=== PATIENT | female | born 1995 | race Caucasian/White ===

== ENCOUNTER 2024-08-20 16:28 | Outpatient (CLI) | payer OTHER, SELFPAY | END 2024-08-20 23:59 | disposition home or self-care (01) | LOC: RT 16:30 | PROVIDERS: Visit Provider Physician Assistant | DX: R00.2 Palpitations (principal); R00.0 Tachycardia, unspecified; R42 Dizziness and giddiness; R06.00 Dyspnea, unspecified | CPT/HCPCS: 93270 ==

== ENCOUNTER 2024-10-22 16:20 | Outpatient (CLI) | payer OTHER, SELFPAY ==
[2024-10-22 16:46] LABS: Basophils % 0.6 % (0.1-2.0); Eosinophils # 0.1 K/mm3 (0.0-0.4); Eosinophils % 1.5 % (0.1-12.0); Hematocrit 39.5 % (37.0-47.0); Hemoglobin 13.4 g/dL (12.2-16.2); Lymphocytes # 1.8 K/mm3 (0.7-4.5); Lymphocytes % 28.2 % (10-50); Mean Corpuscular HGB Conc 33.9 g/dL (31.8-35.4); Mean Corpuscular Volume 85.6 fl (81-99); Mean Platelet Volume 7.4 fl (7.4-10.4); Monocytes # 0.5 K/mm3 (0.1-1.0); Monocytes % 7.8 % (1.7-9.3); Neutrophils # 3.9 K/mm3 (1.8-7.8); Platelet Count 281 K/mm3 (142-424); Red Blood Count 4.62 M/mm3 (4.20-5.40); Red Cell Distribution Width 13.5 % (11.5-17.5); White Blood Count 6.2 K/mm3 (4.8-10.8)
[2024-10-22 17:29] LABS: Alanine Aminotransferase 18 U/L (12-78); Albumin Level 4.5 g/dl (3.5-5.0); Alkaline Phosphatase 72 U/L (38-126); Anion Gap 12.2 mEq/L (5-15); Aspartate Amino Transferase 32 U/L (14-36); Bilirubin,Direct 0.3 mg/dl (0.0-0.4); Bilirubin,Total 0.3 mg/dl (0.2-1.3); Blood Urea Nitrogen 13 mg/dl (7-17); Calcium 9.2 mg/dl (8.4-10.2); Carbon Dioxide 26 mmol/L (22.0-30.0); Chloride 105 mmol/L (98-107); Chol/HDL Ratio 2.4 (1-3.5); Cholesterol 157 mg/dl (140-200); Estimated Glomerular Filt Rate 101 ml/min (>60); GFR (African American) 122 ML/MIN (>60); Glucose 88 mg/dl (74-100); HDL Cholesterol 66 mg/dl (40-60); Magnesium 1.9 mg/dl (1.6-2.3); Potassium 4.2 mmoL/L (3.5-5.1); Sodium 139 mmol/L (136-145); Total Protein,Serum 7.5 g/dl (6.3-8.2); Triglycerides 68 mg/dl (30-150); VLDL Cholesterol 14 mg/dL (0-40)
[2024-10-22 17:40] LABS: Direct LDL Cholesterol 78.68 mg/dL (100-129)
[2024-10-22 17:46] LABS: Free T4 (Free Thyroxine) 1.02 ng/dl (0.78-2.19)
[2024-10-22 18:00] LABS: Thyroid Stimulating Hormone 0.95 uIU/mL (0.465-4.68)
== END 2024-10-22 23:59 | disposition home or self-care (01) ==
LOC: LAB 16:22
PROVIDERS: Visit Provider Physician Assistant
DX: I47.11 Inappropriate sinus tachycardia, so stated (principal); R00.2 Palpitations
CPT/HCPCS: 36415; 80048; 80061; 80076; 83735; 84439; 84443; 85025

== ENCOUNTER 2024-12-06 17:24 | Outpatient (CLI) | payer OTHER, SELFPAY ==
[2024-12-06 20:05] LABS: HCG,Quantitative 17731 mIU/ml (0-5.42)
[2024-12-08 08:14] LABS: Progesterone 17.8 ng/mL (.)
== END 2024-12-06 23:59 | disposition home or self-care (01) ==
LOC: LAB 17:27
PROVIDERS: Visit Provider Nurse Practitioner Obstetrics & Gynecology
DX: Z32.01 Encounter for pregnancy test, result positive (principal)
CPT/HCPCS: 84144; 84702

== ENCOUNTER 2024-12-10 16:44 | Outpatient (CLI) | payer OTHER, SELFPAY ==
[2024-12-10 17:24] LABS: Basophils % 0.5 % (0.1-2.0); Eosinophils # 0.1 K/mm3 (0.0-0.4); Hematocrit 36.4 % (37.0-47.0); Hemoglobin 12.1 g/dL (12.2-16.2); Lymphocytes # 1.4 K/mm3 (0.7-4.5); Lymphocytes % 23.8 % (10-50); Mean Corpuscular HGB Conc 33.2 g/dL (31.8-35.4); Mean Corpuscular Hemoglobin 28.1 pg (27.0-31.2); Mean Corpuscular Volume 84.7 fl (81-99); Mean Platelet Volume 9.5 fl (7.4-10.4); Monocytes # 0.5 K/mm3 (0.1-1.0); Monocytes % 8.4 % (1.7-9.3); Neutrophils # 3.9 K/mm3 (1.8-7.8); Neutrophils % 66.1 % (37.0-80.0); Platelet Count 269 K/mm3 (142-424); Red Cell Distribution Width 12.7 % (11.5-17.5); White Blood Count 5.9 K/mm3 (4.8-10.8)
[2024-12-10 18:49] LABS: HIV Combo NEGATIVE (Negative)
[2024-12-10 18:59] LABS: Hepatitis C Ab Qual. W/ RFX NEGATIVE (Negative)
[2024-12-11 14:59] LABS: RPR W/RFX Titers Nonreactive (Nonreactive)
[2024-12-12 05:08] LABS: Hepatitis B Surface Antigen Negative (Negative)
[2024-12-12 06:39] LABS: Rubella Antibodies, IgG 1.12 index (Immune >0.99)
== END 2024-12-10 23:59 | disposition home or self-care (01) ==
PROVIDERS: PCP Nurse Practitioner Obstetrics & Gynecology; Visit Provider Nurse Practitioner Obstetrics & Gynecology
DX: Z34.01 Encounter for supervision of normal first pregnancy, first trimester (principal)
CPT/HCPCS: 36415; 85025; 86592; 86762; 86803; 86850; 87086; 87340; 87389

== ENCOUNTER 2025-01-08 13:57 | Outpatient (CLI) | payer OTHER, SELFPAY ==
--- NOTE | 2025-01-08 13:57 | US_ITS ---
PROCEDURE: US OB <= 14 WEEKS FETUS CLINICAL INDICATION: Dates and Confirmation of COMPARISON: No exams were available for comparison FINDINGS: Transvaginal sonographic images of the pelvis were obtained. From her last menstrual period she is 9weeks 6days. An intrauterine gestational sac is present with a pole with a crown-rump length of 2.97cm In the posterior aspect of the skull there appears to be a small amount of excess fluid. This could represent an enlarged rhombencephalon. Would suggest repeat ultrasound again in 4 weeks. This correlates to a gestational age of 9weeks 6days. ALDEN 08/07/2025 heart tones are present with an FHR of 156bpm. Yolk sac is noted. The yolk sac measures 6.4mm. The right ovary is seen and appears normal. The left ovary is seen and appears normal. There appears to be a 2.0 cm corpus luteum within the left ovary. There is no fluid in the cul-de-sac. IMPRESSION: 1. Viable embryo within the uterine cavity. heart rate activity is present. 2. Fetus measures 9 weeks 6 days and the ALDEN based on this ultrasound and LMP will be 08/07/2025. 3. On examination of the posterior embryo head, there appears to be a small amount of excess fluid. This could represent dilation of the rhombencephalon. Would suggest repeat ultrasound again in 4 weeks. Dictated by: Pravin Rivera MD 01/08/2025 15:41 Pravin Rivera MD in [facility] 01/08/2025 15:41
== END 2025-01-08 23:59 | disposition home or self-care (01) ==
LOC: RAD 13:57
PROVIDERS: PCP Nurse Practitioner Obstetrics & Gynecology; Visit Provider Nurse Practitioner Obstetrics & Gynecology
DX: O26.841 Uterine size-date discrepancy, first trimester (principal); Z3A.09 9 weeks gestation of pregnancy
CPT/HCPCS: 76801

== ENCOUNTER 2025-02-06 14:29 | Outpatient (CLI) | payer OTHER, SELFPAY ==
--- NOTE | 2025-02-06 14:32 | US_ITS ---
PROCEDURE: US OB FOLLOW UP CLINICAL INDICATION: Follow up -rescan of Head COMPARISON: US US OB <= 14 WEEKS FETUS from 01/08/2025 FINDINGS: Transabdominal sonographic images of the pelvis were obtained. The following parameters are obtained: From her established due date she is 14weeks 0 days Viable fetus in the breech presentation with an anterior placenta grade 1. Placental lakes are seen. Retroplacental the uterine wall appears thickened. Possible contraction during the examination. The cervix measures 3.4 cm heart rate: 149bpm bpm. BPD: 14weeks 4days HC: 14weeks 4days AC: 14weeks 3days FL: 14weeks 1day HC/AC: 1.25 FL/BPD: 0.53 FL/AC: 0.17 Growth percentile: Amniotic fluid index: 47 No obvious anomalies evident. profile seen. The posterior fossa, thalamus, choroid plexus appears normal. IMPRESSION: 1. Viable fetus in the breech presentation with an anterior placenta grade 1. There are several placental lakes. There appears to be a thickened retroplacental area. Possible contraction. 2. The fluid appears adequate for this gestational age. 3. head is seen and the anatomy appears normal. 4. biometry is consistent with the dates. 5. Repeat scan at 20 weeks for complete anatomy. Dictated by: Pravin Rivera MD 02/06/2025 18:24 Pravin Rivera MD in [facility] 02/06/2025 18:24
== END 2025-02-06 23:59 | disposition home or self-care (01) ==
LOC: RAD 14:29
PROVIDERS: Visit Provider Nurse Practitioner Obstetrics & Gynecology
DX: Z36.2 Encounter for other antenatal screening follow-up (principal); Z3A.14 14 weeks gestation of pregnancy
CPT/HCPCS: 76816

== ENCOUNTER 2025-03-11 14:18 | Emergency (ER) | payer OTHER, SELFPAY ==
--- NOTE | 2025-03-11 14:16 | ECG_ITS ---
APPROVED REPORT Exam: Resting ECG HR:70 bpm ECG Measurements Heart Rate 70 AXES MN 108 P 144 QRSd 90 QRS 143 QT 372 T 178 QTc 393 Conclusion ECTOPIC ATRIAL RHYTHM WITH SHORT MN INTERVAL RIGHT AXIS DEVIATION [QRS AXIS > 100] ABNORMAL ECG UNCONFIRMED REPORT Electronically signed by : ALONZO ROSALES, 03/14/2025 00:25:21
[2025-03-11 14:18] VITALS: BP 138/78; PULSE 80; RESP 17; TEMP 36.6; O2SAT 100; BMI 25.0
[2025-03-11 14:30] LABS: Microscopic, Urine URINE MICROSCOPIC (MICROSCOPIC)
[2025-03-11 14:36] LABS: Appearance,Urine CLEAR (Clear); Bilirubin,Urine Negative (Negative); Blood, Urine Negative (Negative); Color,Urine YELLOW (Yellow); Glucose,Urine (UA) Negative (Negative); Ketones,Urine Negative (Negative); Leukocyte Esterase,Urine TRACE (Negative); Nitrate,Urine Negative (Negative); Protein,Urine Negative (Negative); Specific Gravity, Urine <= 1.005 (1.005-1.030); Urobilinogen,Urine 0.2 EU/dl (0.2)
[2025-03-11 15:00] VITALS: BP 122/67; PULSE 70; O2SAT 100
[2025-03-11 15:03] LABS: Basophils % 0.4 % (0.1-2.0); Eosinophils # 0.1 Kmm3 (0.0-0.4); Eosinophils % 1.3 % (0.1-12.0); Hematocrit 33.1 % (37.0-47.0); Hemoglobin 11.4 g/dL (12.2-16.2); Lymphocytes # 1.3 K/mm3 (0.7-4.5); Lymphocytes % 15.1 % (10-50); Mean Corpuscular HGB Conc 34.4 g/dL (31.8-35.4); Mean Corpuscular Hemoglobin 29.7 pg (27.0-31.2); Mean Corpuscular Volume 86.2 fl (81-99); Mean Platelet Volume 9.7 fl (7.4-10.4); Monocytes # 0.5 K/mm3 (0.1-1.0); Monocytes % 6.3 % (1.7-9.3); Neutrophils # 6.5 K/mm3 (1.8-7.8); Neutrophils % 76.5 % (37.0-80.0); Nucleated Red Blood Cells # 0 10^3/uL; Nucleated Red Blood Cells % 0 %; Platelet Count 271 K/mm3 (142-424); Red Blood Count 3.84 M/mm3 (4.20-5.40); Red Cell Distribution Width 12.9 % (11.5-17.5); Red Cell Distribution Width-SD 40.1 fL; White Blood Count 8.5 K/mm3 (4.8-10.8)
--- NOTE | 2025-03-11 15:03 | [facility].EDCP ---
Discharge Plan Disposition Patient Disposition: Home, Self-Care Prescriptions Prescriptions: No Action omeprazole 20 mg capsule,delayed release(DR/EC) 20 mg PO DAILY metoprolol tartrate 25 mg tablet 25 mg PO BID Qty: 60 3RF Referrals Follow up/Referrals: Provider,Referral, MD [Primary Care Provider] - See instructions Activity Restrictions/Add. Instructions Additional Instructions/Restrictions: Today you were evaluated in the emergency department, your lab workup is overall unremarkable. Please follow-up tomorrow. Please return to the ED for any worsening of condition. Clinical Impressions Clinical Impression: Palpitations Instructions Patient Instructions: DI for Palpitations Print Language Print Language: Malian Discharge ED Provider: Chauncey Carcamo HPI <Moni Akhtar APRN - Last Filed: 03/11/25 17:08> General Chief Complaint: Chest Pain Stated Complaint: heart palpitations Time Seen by Provider: 03/11/25 14:38 History of Present Illness HPI narrative: patient is a 29-year-old female PMHx palpitations, tachycardia, abnormal EKG who presents to the ED with complaints of chest pain and palpitations. Patient is currently [address] Yusuf. She states she has never been diagnosed with any specific cardiac diagnoses however has followed with cardiology. Related Data Home Medications ?Medication ?Instructions ?Recorded ?Confirmed omeprazole 20 mg capsule,delayed 20 mg PO DAILY 08/20/24 02/06/25 release Previous Rx's ?Medication ?Instructions ?Recorded metoprolol tartrate 25 mg tablet 25 mg PO BID #60 tabs 02/06/25 Allergies Allergy/AdvReac Type Severity Reaction Status Date / Time amoxicillin Allergy Verified 02/06/25 15:24 indomethacin AdvReac Verified 02/06/25 15:24 clindamycin AdvReac Uncoded 02/06/25 15:24 PFSH <Moni Akhtar APRN - Last Filed: 03/11/25 17:08> PFS Disclaimer: The information contained in this section may have been updated after the patient was seen, as this information can be updated by other users. Medical History 14 weeks gestation of Tachycardia Pyloric stenosis Surgical History History of kidney surgery pyloric stenosis History of cholecystectomy History of arthroplasty of left shoulder Family History Grandmother Cancer Heart attack Family/Other Cancer Grandfather Diabetes Heart attack Stroke Mother Hypertension Social History Smoking Status: Unknown if ever smoked alcohol intake: current alcohol intake frequency: a few times a month substance use type: denies use current occupational status: employed Travel in the last 8 weeks?: Inside the [place] Have you lived/traveled outside US in past 30 days?: No Contact w/someone who lives/traveled outside US past 30 days?: No Exposure to someone with infectious disease in past 14 days?: No Do you have a fever (greater than 100.4 F or 38 C)?: No Have you tested positive for COVID-19?: No Exposed to someone with COVID-19 in past 14 days?: No Do you have a sore throat?: No Do you have a cough?: No Do you have any weakness?: No Do you have any diarrhea?: No Are you experiencing any unusual bleeding?: No Do you have any muscle aches/pain?: No Do you have any abdominal pain?: No Are you experiencing loss of taste or smell?: No <Moni Akhtar APRN - Last Filed: 03/11/25 17:08> ROS Obtained: Yes Systems reviewed as appropriate & no additional complaints except as documented Physical Exam <Moni Akhtar APRN - Last Filed: 03/11/25 17:08> General General appearance: alert and in no apparent distress Head Head exam: atraumatic and normocephalic Eye Eye exam: Present normal appearance and PERRL ENT ENT exam: Present normal exam Neck Neck exam: Present normal inspection Chest Chest inspection: Present normal inspection and symmetric chest wall rise; Absent tenderness Respiratory Respiratory exam: Present normal lung sounds bilaterally Cardiovascular Cardiovascular exam: Present regular rate Abdominal Exam Abdominal exam: Present soft and normal bowel sounds; Absent tenderness Extremities Exam Extremities exam: Present normal inspection and full ROM Back Exam Back exam: Present normal inspection and full ROM Neurological Exam Neurological exam: Present alert and oriented X3 Psychiatric Psychiatric exam: Present normal affect and normal mood Skin Skin exam: Present warm and dry HEART Score <JAYDEN Conde Last Filed: 03/11/25 17:08> HEART Score HEART Score assessment performed?: Yes History (anamnesis): Slightly suspicious ECG: Normal Age: <45 years Risk factors: No known risk factors Troponin: </= normal limit HEART Score: 0 <Chauncey Carcamo MD - Last Filed: 03/11/25 18:06> HEART Score HEART Score: 0 Procedures <Chauncey Carcamo MD - Last Filed: 03/11/25 18:06> Limited Ultrasound Indication:: Limited cardiac ultrasound Indication: Chest pain radiating to left shoulder Identified cardiac views: -Cardiac parasternal long axis -Cardiac parasternal short axis Findings: -Cardiac activity present -Gross wall motion normal -Pericardial effusion absent -Right heart strain absent Impression: - Normal cardiac ultrasound Images were saved to permanent archive The study was technically adequate CPT: 85218 This study was performed by il, and I personally interpreted all images/videos. Based on my clinical judgement, these images were adequate and did not necessitate further imaging Views:: Limited OB ultrasound Indication: Positive , 19 weeks palpitations Identified structures: -Uterus -Left adnexa -Right adnexa -Pouch of Jeff Findings: Uterus: Definitive IUP with FHR in the 140s Right adnexa: -Normal Left adnexa: -Normal Cul de sac: -free fluid absent Impression: -IUP: Present with fhr in the 140s -Ectopic : Absent -Free fluid: Absent Images were saved to permanent archive The study was technically adequate CPT Transabdominal: 90498-00 This study was performed by il, and I personally interpreted all images/videos. Based on my clinical judgement, these images were adequate and did not necessitate further imaging Critical Care <Moni Akhtar APRN - Last Filed: 03/11/25 17:08> Critical Care Time Critical Care Time: No Medical Decision Making <Moni Akhtar APRN - Last Filed: 03/11/25 17:08> Jose Inquiry Pt receiving controlled substance: No Vital Signs Vital Signs: 03/11/25 14:18 03/11/25 15:00 03/11/25 16:16 Temperature 97.9 F 98.0 F Temperature Source Oral Oral Pulse Rate 70 68 Pulse Rate [Left Radial] 80 Respiratory Rate 17 18 Blood Pressure 122/67 108/61 L Blood Pressure [Right Arm] 138/78 Blood Pressure Mean [Right Arm] 98 Blood Pressure Source Automatic Cuff Blood Pressure Source [Right Arm] Automatic Cuff Blood Pressure Position Sitting Blood Pressure Position [Right Arm] Sitting 02 Sat by Pulse Oximetry 100 100 Oxygen Delivery Method Room Air Room Air Lab Data Labs: Lab Results 03/11/25 14:24: Urine Color Yellow, Urine Appearance Clear, Urine pH 7.0, Ur Specific [place] <= 1.005, Urine Protein Negative, Urine Glucose (UA) Negative, Urine Ketones Negative, Urine Blood Negative, Urine Nitrate Negative, Urine Bilirubin Negative, Urine Urobilinogen 0.2, Ur Leukocyte Esterase Trace, Urine RBC None, Urine WBC Occasional, Ur Squamous Epith Cells Occasional, Urine Bacteria Trace 03/11/25 14:53: WBC 8.5, RBC 3.84 L, Hgb 11.4 L, Hct 33.1 L, MCV 86.2, MCH 29.7, MCHC 34.4, RDW 12.9, Plt Count 271, MPV 9.7, Neut % (Auto) 76.5, Lymph % (Auto) 15.1, [place] % (Auto) 6.3, Eos % (Auto) 1.3, Baso % (Auto) 0.4, Neut # (Auto) 6.5, Lymph # (Auto) 1.3, [place] # (Auto) 0.5, Eos # (Auto) 0.1, Baso # (Auto) 0.0, Sodium 134 L, Potassium 3.8, Chloride 107, Carbon Dioxide 24, Anion Gap 6.8, BUN 6 L, Creatinine 0.60, Estimated GFR 120, Est GFR ( Amer) 145, Glucose 86, Calcium 8.9, Magnesium 1.6, Total Bilirubin 0.2, AST 34, ALT 31, Alkaline Phosphatase 83, Troponin I < 0.01, Total Protein 7.1, Albumin 3.8, Globulin 3.3 H, Albumin/Globulin Ratio 1.2 03/11/25 14:53 03/11/25 14:53 Response Orders (Tests/Meds): ORDERS Category Date Time Status POCUS Point of Care (ER Only) Stat Exams 03/11/25 14:52 Taken CBC w/Auto Diff [Complete Blood Count Auto Diff] Stat Lab 03/11/25 14:53 Completed CMP [Comprehensive Metabolic Panel] Stat Lab 03/11/25 14:53 Completed Magnesium Stat Lab 03/11/25 14:53 Completed Trop I [Troponin I] Stat Lab 03/11/25 14:53 Completed Troponin I Q3H Lab 03/11/25 21:00 Ordered UA [Urinalysis and Microscopic] Stat Lab 03/11/25 14:24 Completed MDM Narrative Medical Decision Narrative: In summary, patient is a 29-year-old female PMHx palpitations, tachycardia, abnormal EKG who presents to the ED with complaints of chest pain and palpitations. Patient is currently [address] Yusuf. She states she has never been diagnosed with any specific cardiac diagnoses however has followed with cardiology. She has a follow-up appointment scheduled for April. She denies any issues with , denies any cramping, vaginal bleeding, abdominal pain. She states at the time of arrival, her symptoms have mostly resolved. She feels like her symptoms are worse when standing. Denies fever, chills, headache, visual disturbances, posterior neck pain, back pain, nausea, vomiting, dysuria. Upon initial evaluation patient is alert, oriented and cooperative. She is hemodynamically stable. Physical exam is unremarkable. Differential diagnosis include PE, ACS, dissection, electrolyte abnormality, tachycardia, among others. Discussed with patient and spouse that we will proceed with lab work, EKG, and [id number] ultrasound performed by attending. CBC unremarkable for any leukocytosis, stable H&H. CMP unremarkable for any actionable abnormalities. First troponin < 0.01. Urinalysis unremarkable. Patient does not have any urine symptoms. Upon reassessment, patient's condition has improved, she is not currently having pain. Given this, I feel the patient is safe to be discharged home at this time. Discussed with attending. Advised patient to follow-up with cardiology this week and continue to follow-up with OB as scheduled. Patient verbalized understanding. She is hemodynamically stable and ambulatory upon leaving the ED <Chauncey Carcamo MD - Last Filed: 03/11/25 18:06> Vital Signs Vital Signs: 03/11/25 14:18 03/11/25 15:00 03/11/25 16:16 Temperature 97.9 F 98.0 F Temperature Source Oral Oral Pulse Rate 70 68 Pulse Rate [Left Radial] 80 Respiratory Rate 17 18 Blood Pressure 122/67 108/61 L Blood Pressure [Right Arm] 138/78 Blood Pressure Mean [Right Arm] 98 Blood Pressure Source Automatic Cuff Blood Pressure Source [Right Arm] Automatic Cuff Blood Pressure Position Sitting Blood Pressure Position [Right Arm] Sitting 02 Sat by Pulse Oximetry 100 100 Oxygen Delivery Method Room Air Room Air Lab Data Labs: Lab Results 03/11/25 14:24: Urine Color Yellow, Urine Appearance Clear, Urine pH 7.0, Ur Specific [place] <= 1.005, Urine Protein Negative, Urine Glucose (UA) Negative, Urine Ketones Negative, Urine Blood Negative, Urine Nitrate Negative, Urine Bilirubin Negative, Urine Urobilinogen 0.2, Ur Leukocyte Esterase Trace, Urine RBC None, Urine WBC Occasional, Ur Squamous Epith Cells Occasional, Urine Bacteria Trace 03/11/25 14:53: WBC 8.5, RBC 3.84 L, Hgb 11.4 L, Hct 33.1 L, MCV 86.2, MCH 29.7, MCHC 34.4, RDW 12.9, Plt Count 271, MPV 9.7, Neut % (Auto) 76.5, Lymph % (Auto) 15.1, [place] % (Auto) 6.3, Eos % (Auto) 1.3, Baso % (Auto) 0.4, Neut # (Auto) 6.5, Lymph # (Auto) 1.3, [place] # (Auto) 0.5, Eos # (Auto) 0.1, Baso # (Auto) 0.0, Sodium 134 L, Potassium 3.8, Chloride 107, Carbon Dioxide 24, Anion Gap 6.8, BUN 6 L, Creatinine 0.60, Estimated GFR 120, Est GFR ( Amer) 145, Glucose 86, Calcium 8.9, Magnesium 1.6, Total Bilirubin 0.2, AST 34, ALT 31, Alkaline Phosphatase 83, Troponin I < 0.01, Total Protein 7.1, Albumin 3.8, Globulin 3.3 H, Albumin/Globulin Ratio 1.2 Response Orders (Tests/Meds): ORDERS Category Date Time Status POCUS Point of Care (ER Only) Stat Exams 03/11/25 14:52 Taken CBC w/Auto Diff [Complete Blood Count Auto Diff] Stat Lab 03/11/25 14:53 Completed CMP [Comprehensive Metabolic Panel] Stat Lab 03/11/25 14:53 Completed Magnesium Stat Lab 03/11/25 14:53 Completed Trop I [Troponin I] Stat Lab 03/11/25 14:53 Completed Troponin I Q3H Lab 03/11/25 21:00 Ordered UA [Urinalysis and Microscopic] Stat Lab 03/11/25 14:24 Completed MDM Narrative Medical Decision Narrative: In summary, patient is a 29-year-old female PMHx palpitations, tachycardia, abnormal EKG who presents to the ED with complaints of chest pain and palpitations. Patient is currently [address] Yusuf. She states she has never been diagnosed with any specific cardiac diagnoses however has followed with cardiology. She has a follow-up appointment scheduled for April. She denies any issues with , denies any cramping, vaginal bleeding, abdominal pain. She states at the time of arrival, her symptoms have mostly resolved. She feels like her symptoms are worse when standing. Denies fever, chills, headache, visual disturbances, posterior neck pain, back pain, nausea, vomiting, dysuria. Upon initial evaluation patient is alert, oriented and cooperative. She is hemodynamically stable. Physical exam is unremarkable. Differential diagnosis include PE, ACS, dissection, electrolyte abnormality, tachycardia, among others. Discussed with patient and spouse that we will proceed with lab work, EKG, and [id number] ultrasound performed by attending. CBC unremarkable for any leukocytosis, stable H&H. CMP unremarkable for any actionable abnormalities. First troponin < 0.01. Urinalysis unremarkable. Patient does not have any urine symptoms. Upon reassessment, patient's condition has improved, she is not currently having pain. Given this, I feel the patient is safe to be discharged home at this time. Discussed with attending. Advised patient to follow-up with cardiology this week and continue to follow-up with OB as scheduled. Patient verbalized understanding. She is hemodynamically stable and ambulatory upon leaving the ED I was consulted by the SIVAKUMAR, and we discussed the complexity of the problems being addressed. I approved the treatment and management plan for this patient's care in the Emergency Department, thus performing a substantive portion of the medical decision making. I independently examined and interviewed patient, clinically stable. On independent interpretation of workup, nonactionable hematologic labs including troponin. Because patient at baseline without signs or symptoms of clinical decompensation, deemed appropriate for discharge. Results were relayed to patient who voiced understanding and were agreeable to outpatient management and follow up. I discussed my clinical impression with patient and answered all questions. At this time, the evidence for any other entities in the differential is insufficient to warrant any further testing or ED observation. This was explained as well. Advisory was given that persistent or worsening symptoms require further evaluation. I confirmed the understanding of this discussion. Chauncey Carcamo MD
[2025-03-11 15:24] LABS: Albumin Level 3.8 g/dl (3.5-5.0); Chloride 107 mmol/L (98-107); Potassium 3.8 mmoL/L (3.5-5.1); Sodium 134 mmol/L (136-145)
[2025-03-11 15:27] LABS: Alanine Aminotransferase 31 U/L (12-78); Albumin/Globulin Ratio 1.2 (1.1-1.8); Alkaline Phosphatase 83 U/L (38-126); Anion Gap 6.8 mEq/L (5-15); Aspartate Amino Transferase 34 U/L (14-36); Bilirubin,Total 0.2 mg/dl (0.2-1.3); Blood Urea Nitrogen 6 mg/dl (7-17); Carbon Dioxide 24 mmol/L (22.0-30.0); Estimated Glomerular Filt Rate 120 ml/min (>60); GFR (African American) 145 ML/MIN (>60); Globulin 3.3 g/dL (1.3-3.2); Total Protein,Serum 7.1 g/dl (6.3-8.2)
[2025-03-11 15:28] LABS: Calcium 8.9 mg/dl (8.4-10.2); Glucose 86 mg/dl (74-100); Magnesium 1.6 mg/dl (1.6-2.3)
[2025-03-11 15:43] LABS: Troponin I < 0.01 ng/ml (0.00-0.034)
[2025-03-11 15:54] LABS: Bacteria,Urine Trace /lpf; Squamous Epithelial Cell,Urine Occasional #/hpf (0-5); WBC,Urine Occasional #/hpf (0-3)
[2025-03-11 16:16] VITALS: BP 108/61; PULSE 68; RESP 18; TEMP 36.7; O2SAT 100
== END 2025-03-11 16:18 | disposition home or self-care (01) ==
PROVIDERS: Nurse Practitioner; Student in an Organized Health Care Education/Training Program; Emergency Provider Emergency Medicine
DX: O26.892 Other specified pregnancy related conditions, second trimester (principal); R00.2 Palpitations; Z3A.19 19 weeks gestation of pregnancy
CPT/HCPCS: 80053; 81001; 83735; 84484; 85025; 93005; 99284

== ENCOUNTER 2025-03-25 14:01 | Outpatient (CLI) | payer OTHER, SELFPAY ==
--- NOTE | 2025-03-25 14:30 | US_ITS ---
PROCEDURE: US OB /MATERNAL DETAIL CLINICAL INDICATION: 20 week Anatomy Scan COMPARISON: US US OB <= 14 WEEKS FETUS from 01/08/2025 US US OB FOLLOW UP from 02/06/2025 FINDINGS: Transabdominal sonographic images of the pelvis were obtained. From her established due date she is 20 weeks 5 days. Single viable intrauterine gestation. Cephalic position. Placenta: Posteriorplacenta grade 1. There is an average amount of fluid. The cervix appears satisfactory. Closed and measuring 6.08 cm in length. Complete survey performed and was unremarkable on the submitted images as in PACS. No discrete anomalies identified on survey imaging by technologist. Active fetus. Three-vessel cord with satisfactory umbilical cord insertion. 4- chamber heart noted. Situs, aortic arch, LVOT, RVOT, three-vessel view appear normal. Survey of brain & ventricles Unremarkable. Cerebellum, thalamus, choroid plexus, cisterna magna appear normal. Face and neck survey unremarkable. Profile, nasion, lips and nose appeared normal. Diaphragm and chest views unremarkable. Abdomen: Both kidneys noted and unremarkable. Stomach and bladder noted and satisfactory. Spine: Survey of the spine satisfactory with no anomalies identified nor imaged. Cervical, thoracic, lower spine appear normal. Both arms and legs noted. Amniotic Fluid: Adequate. MVP 3.35 cm Measurements: Average ultrasound age 20weeks 6days. Estimated due date by ultrasound age 0908/06/2025. Estimated weight 375g BPD = 21weeks 0 days HC = 20weeks 5days AC = 20weeks 6days FL = 20weeks 5days Growth Percentile= 46 Heart Rate = 147bpm Cerebellum = 20weeks 4days Humerus = 21weeks 1day HC/AC is 1.17 FL/BPD is 0.69 FL/AC is 0.22 IMPRESSION: 1. Viable fetus in the cephalic presentation with a posterior placenta grade 1. 2. The fluid is within normal limits with an MVP 3.35 cm. 3. Anatomical scan appears normal. 4. biometry is consistent with the dates. Dictated by: Pravin Rivera MD 03/25/2025 17:54 Pravin Rivera MD in [facility] 03/25/2025 17:54
== END 2025-03-25 23:59 | disposition home or self-care (01) ==
LOC: RAD 14:02
PROVIDERS: PCP Nurse Practitioner Obstetrics & Gynecology; Visit Provider Nurse Practitioner Obstetrics & Gynecology
DX: Z36.3 Encounter for antenatal screening for malformations (principal); I47.11 Inappropriate sinus tachycardia, so stated; Z3A.20 20 weeks gestation of pregnancy
CPT/HCPCS: 76811

== ENCOUNTER 2025-05-15 09:07 | Outpatient (CLI) | payer OTHER, SELFPAY ==
[2025-05-15 10:57] LABS: Hematocrit 35.7 % (37.0-47.0); Hemoglobin 12.1 g/dL (12.2-16.2); Immature Granulocytes % 1.0 %; Mean Corpuscular HGB Conc 33.9 g/dL (31.8-35.4); Mean Corpuscular Hemoglobin 31.2 pg (27.0-31.2); Mean Corpuscular Volume 92.0 fl (81-99); Nucleated Red Blood Cells % 0 %; Platelet Count 283 K/mm3 (142-424); Red Blood Count 3.88 M/mm3 (4.20-5.40); Red Cell Distribution Width-SD 44.2 fL; White Blood Count 10.0 K/mm3 (4.8-10.8)
[2025-05-15 11:26] LABS: Glucose 1 Hour 118 mg/dL (74-100)
[2025-05-15 16:47] LABS: RPR W/RFX Titers Nonreactive (Nonreactive)
== END 2025-05-15 23:59 | disposition home or self-care (01) ==
LOC: LAB 09:08
PROVIDERS: Visit Provider Obstetrics & Gynecology
DX: Z34.02 Encounter for supervision of normal first pregnancy, second trimester (principal)
CPT/HCPCS: 36415; 82947; 85025; 86592